=== PATIENT | female | born 1930 | race Caucasian/White ===

== ENCOUNTER 2017-10-05 15:20 | Inpatient (IN) | payer MEDICARE, BC ==
[~2017-10-05] VITALS: Ht 170.2 cm; Wt 77.2 kg
[~2017-10-05 15:20] MED LIST: AMLO2.5T PO; ASPI81 CHEW; LISI10TA PO; METO100T PO
[2017-10-05 15:26] VITALS: BP 260/121; PULSE 76; RESP 20; TEMP 98.5; O2SAT 94
--- NOTE | 2017-10-05 16:28 | RADRPT ---
EXAM DATE/TIME: 10/05/2017 16:12 [facility] COMPARISON: No previous studies available for comparison. INDICATIONS : Patient unable to speak and express herself last night. MEDICAL HISTORY : None. SURGICAL HISTORY : None. ENCOUNTER: Initial ACUITY: 1 day PAIN SCORE: 0/10 LOCATION: upper chest FINDINGS: PA and lateral views of the chest demonstrate the lungs to be symmetrically aerated without evidence of mass, infiltrate or effusion. A calcified granuloma seen within the left perihilar region. Aorta i s tortuous and calcified. The cardiomediastinal contours are unremarkable. Osseous structures are i ntact. The scoliotic and degenerative spine. CONCLUSION: No acute disease. Umer Aviles Jr., MD on October 05, 2017 at 16:24 Board Certified Radiologist. This report was verified electronically.
--- NOTE | 2017-10-05 16:35 | RADRPT ---
EXAM DATE/TIME: 10/05/2017 16:20 [facility] COMPARISON: CT BRAIN W/O CONTRAST, September 22, 2012, 20:25. INDICATIONS : Blurred vision. Difficulty speaking. Cephalgia. Confusion. RADIATION DOSE: 43.41 CTDIvol (mGy) MEDICAL HISTORY : Hypertension. SURGICAL HISTORY : None. ENCOUNTER: Initial ACUITY: 2 days PAIN SCALE: 0/10 LOCATION: cranial TECHNIQUE: Multiple contiguous axial images were obtained of the head. Using automated exposure control and adj ustment of the mA and/or kV according to patient size, radiation dose was kept as low as reasonably a chievable to obtain optimal diagnostic quality images. DICOM format image data is available electro nically for review and comparison. FINDINGS: CEREBRUM: The ventricles are normal for age. No evidence of midline shift, mass lesion, hemorrhage or acute in farction. No extra-axial fluid collections are seen. POSTERIOR FOSSA: The cerebellum and brainstem are intact. The 4th ventricle is midline. The cerebellopontine angle i s unremarkable. EXTRACRANIAL: The visualized portion of the orbits is intact. SKULL: The calvaria is intact. No evidence of skull fracture. CONCLUSION: Negative for an acute process. Justin Hastings MD FACR on October 05, 2017 at 16:33 Board Certified Radiologist. This report was verified electronically.
[2017-10-05 16:46] LABS: AUTOMATED NEUTROPHIL # 4.2 TH/MM3 (1.8-7.7); BASOPHIL % 0.2 % (0.0-2.0); EOSINOPHIL # 0.3 TH/MM3 (0-0.4); EOSINOPHIL % 4.2 % (0.0-4.0); HEMATOCRIT 40.5 % (35.0-46.0); HEMO FLAGS DIFF FINAL; LYMPH % 27.3 % (9.0-44.0); LYMPHOCYTE # 1.9 TH/MM3 (1.0-4.8); MEAN CELL VOLUME 85.9 FL (80.0-100.0); MEAN CORPUSCULAR HGB CONC 33.8 % (32.0-36.0); NEUT % 58.3 % (16.0-70.0); PLATELET COUNT 150 TH/MM3 (150-450); RED BLOOD COUNT 4.72 MIL/MM3 (4.00-5.30); RED CELL DISTRIBUTION WIDTH 14.2 % (11.6-17.2); WHITE BLOOD COUNT 7.1 TH/MM3 (4.0-11.0)
[2017-10-05 17:15] LABS: ALT (GPT) 32 U/L (10-53); ANION GAP 9 MEQ/L (5-15); AST (GOT) 23 U/L (15-37); BICARBONATE 29.3 MEQ/L (21.0-32.0); BLOOD UREA NITROGEN 20 MG/DL (7-18); CHLORIDE 92 MEQ/L (98-107); GLOMERULAR FILTRATION RATE 45 ML/MIN (>89); POTASSIUM 3.3 MEQ/L (3.5-5.1); SODIUM (NA) 130 MEQ/L (136-145)
[2017-10-05 17:18] LABS: ALKALINE PHOSPHATASE 55 U/L (45-117); TOTAL BILIRUBIN ADULT 0.4 MG/DL (0.2-1.0)
[2017-10-05 17:48] VITALS: BP 235/121; PULSE 62; RESP 19; TEMP 97.6; O2SAT 97
[2017-10-05] MEDS ORDERED: areds PO (17:53)
[2017-10-05] MEDS ORDERED: PROPARACAINE HCL 0.5% OPHT SOLN 15 ML BTL EACH EYE ONE (18:00)
[2017-10-05] MEDS ORDERED: FLUORESCEIN SOD 1 MG STRIP EACH EYE ONE (18:00)
[2017-10-05 18:20] LABS: APTT (PATIENT) 28.3 SEC (24.3-30.1); PROTHROMBIN TIME - PATIENT 10.7 SEC (9.8-11.6)
[2017-10-05 19:01] VITALS: BP 217/105; PULSE 62; RESP 20; O2SAT 96
[2017-10-05] MEDS ORDERED: hydrALAZINE HCL 20 MG/ML VIAL IV PUSH ONE (19:15)
--- NOTE | 2017-10-05 19:15 | PD ---
HPI Chief Complaint: Neuro Symptoms/ Deficits Time Seen by Provider: 17:36 Travel History International Travel<30 days: No Contact w/Intl Traveler<30days: No Traveled to known affect area: No History of Present Illness HPI Patient is an 86-year-old female who comes in because yesterday she had blurred vision and difficulty speaking. She said last night she was on the phone and was having difficulty finding words. She also reports that her vision went out. She says that she did not come in because she thought it would improve. She called her doctor this morning and complains finally heard back from him, he suggested she come to the emergency department. She says her vision is a little blurry, but her other symptoms have resolved. She denies weakness or difficulty walking. She says she has had a little bit of a posterior headache. She denies nausea or vomiting. She reports compliance with her blood pressure medications. PFSH Past Medical History Hx Anticoagulant Therapy: No Arthritis: Yes Cancer: No Cardiovascular Problems: Yes (HTN ) Chemotherapy: No Cerebrovascular Accident: Yes Diabetes: No Diminished Hearing: No Endocrine: No Gastrointestinal Disorders: Yes (ACID REFLUX) Genitourinary: No Hepatitis: No Hiatal Hernia: No Hypertension: Yes Immune Disorder: No Medical other: Yes (HX DIVERTICULITIS) Musculoskeletal: Yes (POST RIGHT HIP REPLACE - ) Neurologic: No Psychiatric: No Reproductive: No Respiratory: No Thyroid Disease: No Tetanus Vaccination: Unknown Influenza Vaccination: No ?: Not Menopausal: Yes Past Surgical History Abdominal Surgery: Yes (COLOSTOMY 2012) AICD: No Cardiac Surgery: No Ear Surgery: No Eye Surgery: Yes (CATARACT SURGERY BILATERAL ) Gynecologic Surgery: No Hysterectomy: No Joint Replacement: Yes (RIGHT TOT HIP) Oral Surgery: No Pacemaker: No Thoracic Surgery: No Other Surgery: Yes (VAGINAL FISTULA) Social History Alcohol Use: No Tobacco Use: No Substance Use: No Allergies-Medications (Allergen,Severity, Reaction): Coded Allergies: metronidazole (Verified Adverse Reaction, Intermediate, FELT BAD WEAK STOMACH FELT BAD ALL OVER, 10/05/17) Reported Meds & Prescriptions Reported Meds & Active Scripts Active Metoprolol Tartrate 100 Mg Tab 100 Mg PO DAILY Lisinopril-Hctz 10-12.5 Mg Tab 1 Tab PO DAILY Amlodipine (Amlodipine Besylate) 2.5 Mg Tab 2.5 Mg PO DAILY Reported [areds] 1 Tab PO DAILY Review of Systems Except as stated in HPI: all other systems reviewed are Neg General / Constitutional: No: Fever, Chills Eyes: Positive: Blurred Vision HENT: Positive: Headaches Cardiovascular: No: Chest Pain or Discomfort Respiratory: No: Shortness of Breath Gastrointestinal: No: Nausea, Vomiting Genitourinary: No: Dysuria Musculoskeletal: No: Myalgias, Weakness Skin: No Rash, No Change in Pigmentation Neurologic: No: Weakness Physical Exam Narrative GENERAL: Awake and alert, in no acute distress. SKIN: Focused skin assessment warm/dry. HEAD: Atraumatic. Normocephalic. EYES: Pupils equal and round. No scleral icterus. EOMI. ENT: Mucous membranes pink and moist. NECK: Trachea midline. No JVD. CARDIOVASCULAR: Regular rate and rhythm. No murmur appreciated. RESPIRATORY: No accessory muscle use. Clear to auscultation. Breath sounds equal bilaterally. GASTROINTESTINAL: Abdomen soft, non-tender, nondistended. MUSCULOSKELETAL: No obvious deformities. No clubbing. No cyanosis. No edema. NEUROLOGICAL: Awake and alert. No obvious cranial nerve deficits. Motor grossly within normal limits. Normal speech. PSYCHIATRIC: Appropriate mood and affect; insight and judgment normal. Data Data Last Documented VS Vital Signs Date Time Temp Pulse Resp B/P (MAP) Pulse Ox O2 Delivery O2 Flow Rate FiO2 10/05/17 19:01 62 20 217/105 (142) 96 Room Air 10/05/17 17:48 97.6 Orders Orders Electrocardiogram (10/05/17 15:49) Prothrombin Time / Inr (Pt) (10/05/17 15:49) Act Partial Throm Time (Ptt) (10/05/17 15:49) Complete Blood Count With Diff (10/05/17 15:49) Comprehensive Metabolic Panel (10/05/17 15:49) Ct Brain W/O Iv Contrast(Rout) (10/05/17 15:49) Ecg Monitoring (10/05/17 15:49) Iv Access Insert/Monitor (10/05/17 15:49) Oximetry (10/05/17 15:49) Sodium Chloride 0.9% Flush (Ns Flush) (10/05/17 16:00) Chest, Pa & Lat (10/05/17 15:49) Act Partial Throm Time (Ptt) (10/05/17 17:49) Prothrombin Time / Inr (Pt) (10/05/17 17:49) Troponin I (10/05/17 17:50) Proparacaine 0.5% Opth Soln (Alcaine 0.5 (10/05/17 18:00) Fluorescein Strip (Nnguu-V-Uiikzi A.T.) (10/05/17 18:00) Hydralazine Inj (Apresoline Inj) (10/05/17 19:15) Aspirin (Aspirin) (10/05/17 19:30) Mri Brain W&W/O Contrast (10/05/17 ) Mra Carotids W Contrast (10/05/17 ) Labs Laboratory Tests Test 10/05/17 16:07 10/05/17 17:55 White Blood Count 7.1 TH/MM3 Red Blood Count 4.72 MIL/MM3 Hemoglobin 13.7 GM/DL Hematocrit 40.5 % Mean Corpuscular Volume 85.9 FL Mean Corpuscular Hemoglobin 29.0 PG Mean Corpuscular Hemoglobin Concent 33.8 % Red Cell Distribution Width 14.2 % Platelet Count 150 TH/MM3 Mean Platelet Volume 9.4 FL Neutrophils (%) (Auto) 58.3 % Lymphocytes (%) (Auto) 27.3 % Monocytes (%) (Auto) 10.0 % Eosinophils (%) (Auto) 4.2 % Basophils (%) (Auto) 0.2 % Neutrophils # (Auto) 4.2 TH/MM3 Lymphocytes # (Auto) 1.9 TH/MM3 Monocytes # (Auto) 0.7 TH/MM3 Eosinophils # (Auto) 0.3 TH/MM3 Basophils # (Auto) 0.0 TH/MM3 CBC Comment DIFF FINAL Differential Comment Prothrombin Time SEC 10.7 SEC Prothromb Time International Ratio RATIO 1.0 RATIO Activated Partial Thromboplast Time SEC 28.3 SEC Blood Urea Nitrogen 20 MG/DL Creatinine 1.15 MG/DL Random Glucose 111 MG/DL Total Protein 7.8 GM/DL Albumin 4.0 GM/DL Calcium Level 9.1 MG/DL Alkaline Phosphatase 55 U/L Aspartate Amino Transf (AST/SGOT) 23 U/L Alanine Aminotransferase (ALT/SGPT) 32 U/L Total Bilirubin 0.4 MG/DL Sodium Level 130 MEQ/L Potassium Level 3.3 MEQ/L Chloride Level 92 MEQ/L Carbon Dioxide Level 29.3 MEQ/L Anion Gap 9 MEQ/L Estimat Glomerular Filtration Rate 45 ML/MIN Troponin I LESS THAN 0.02 NG/ML MDM Medical Decision Making Medical Screen Exam Complete: Yes Emergency Medical Condition: Yes Medical Record Reviewed: Yes Differential Diagnosis TIA versus stroke versus hypertensive urgency versus hypertensive emergency Narrative Course Patient is an 86-year-old female who comes in after an episode of blurred vision and difficulty speaking. Her symptoms are resolved now, neurologic exam is within normal limits. IV established, labs sent. Labs sent from triage of an elevated INR. However patient is not on any blood thinners. Repeat blood work shows PT PTT and INR all within normal limits. CT head shows no acute abnormalities. Patient's blood pressure is elevated. Given a dose of hydralazine. Dean pen used to measure pressure shows pressure in right eye is 8. Elliott lamp exam shows no evidence of abrasion. Spoke with neurology who suggests that admission for TIA workup. She will be admitted for further management. Given aspirin. Diagnosis Primary Impression: TIA (transient ischemic attack) Qualified Codes: G45.9 - Transient cerebral ischemic attack, unspecified Admitting Information Admitting Physician Requests: Admit Rosaura Cox MD Oct 05, 2017 19:15
[2017-10-05] MEDS ORDERED: ASPIRIN 325 MG TAB PO ONE (19:30)
[2017-10-05 19:46] VITALS: BP 220/98; PULSE 74; RESP 19; O2SAT 98
[2017-10-05] MEDS ORDERED: ENALAPRILAT 1.25 MG/ML VIAL IV PUSH PRN (20:00)
[2017-10-05] MEDS ORDERED: DEXTROSE 50% IN WATER 50 ML VIAL(D50) IV PUSH PRN (20:00)
[2017-10-05] MEDS ORDERED: GLUCAGON 1 MG/ML VIAL OTHER PRN (20:00)
[2017-10-05] MEDS ORDERED: SODIUM CHLORIDE 0.9% FLUSH 5 ML FLUSH IV FLUSH PRN (20:00)
[2017-10-05 20:30] VITALS: BP 207/97; PULSE 85; RESP 19; O2SAT 98
[2017-10-05] MEDS: INSULIN ASPART SUPPLEMENTAL SCALE SQ SCH (21:00)
[2017-10-05 21:55] VITALS: BP 184/91; PULSE 72; RESP 18; TEMP 98.7; O2SAT 97
[2017-10-05] MEDS: ENOXAPARIN SODIUM 40 MG/0.4 ML SYRINGE SQ SCH (22:36)
[2017-10-05] MEDS: SODIUM CHLORIDE 0.9% FLUSH 5 ML FLUSH IV FLUSH SCH (22:36)
--- NOTE | 2017-10-05 23:06 | HHI.HP ---
[facility] Service Family Medicine Primary Care Physician Alexis Olson MD Admission Diagnosis TIA Diagnoses: International Travel<30 Days: No Contact w/Intl Traveler<30days: No Known Affected Area: No History of Present Illness Mrs. Mora is a pleasant 86-year-old female, with a past medical history significant for hypertension, TIA, bowel obstruction, ventral hernia, glaucoma, and RLE DVT, presenting after experiencing difficulty with pronunciation of words, and blurry vision. History of present illness: She reports that last night on 10/04/2017 at around 9 PM, she was on the phone with her grand son. She reports that she was having difficulty with her finding her words and enunciating her words as well. At the same time, she had high lateral blurry vision. She told her grandson that she needed to get off the phone, and then went straight to bed. When she woke up, she was feeling slightly off, but almost back to her baseline. She denies any numbness or tingling on one side of her body, confusion, lightheadedness, with persistent blurry vision. She called her diffuser operator in the afternoon, and given her symptoms the night prior, it was recommended that she come into the emergency department. She currently has a headache at the base of her skull. Review of Systems Constitutional: DENIES: Fatigue, Fever Endocrine: DENIES: Polyuria Ears, nose, mouth, throat: DENIES: Vertigo Respiratory: DENIES: Apneas, Cough, Snoring, Sputum production, Shortness of breath Cardiovascular: DENIES: Chest pain, Palpitations, Syncope Gastrointestinal: DENIES: Abdominal pain, Black stools, Bloody stools, Constipation, Diarrhea Musculoskeletal: DENIES: Joint pain, Back pain Integumentary: DENIES: Rash Neurologic: COMPLAINS OF: Headache, DENIES: Abnormal gait, Localized weakness, Paresthesias, Seizures, Speech Problems, Tremor, Poor Balance Past Family Social History Past Medical History Additional history Past Medical History: HTN Rheumatic fever as a child Glaucoma (bilateral w/ surgery) Seborrheic dermatitis RLE DVT (01/31) Abdominal hernia, Past Surgical History: Basal cell cancer (2008) Squamous cancer (2010) Right hip replacement (10/02) Cecal repair, sigmoid repair, colostomy (10/18/13) Colostomy reversal (03/03) 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 Montelongo) for her abdominal hernia Allergies: Flagyl (stomach ache and feels bad all over) Social History: Occupation: retired Living situation: lives in [facility] with granddaughter Tobacco: former smoker, quit at age 57, 1/2 ppd for 20 years Alcohol: none Drugs: none Preventative: 81 mg Aspirin: recommended Hypertension: every visit Lipids: Orderd 03/05/16 Immunizations: Influenza: Defers Pneumococcal: recommended, defers Td/Tdap: Defers Varicella: as a child Zoster: recommended, defers Advanced directives: Patient says she has filled out her living will and was informed she should bring this to the office to be scanned in. She also states her 6 children are aware of her needs in the event they should need to be contact. Allergies: Coded Allergies: metronidazole (Verified Adverse Reaction, Intermediate, FELT BAD WEAK STOMACH FELT BAD ALL OVER, 10/05/17) Physical Exam Vital Signs Vital Signs Date Time Temp Pulse Resp B/P (MAP) Pulse Ox O2 Delivery O2 Flow Rate FiO2 10/05/17 21:55 98.7 72 18 184/91 (122) 97 10/05/17 20:55 10/05/17 20:30 85 19 207/97 (133) 98 Room Air 10/05/17 19:46 74 19 220/98 (138) 98 Room Air 10/05/17 19:01 62 20 217/105 (142) 96 Room Air 10/05/17 17:48 97.6 62 19 235/121 (159) 97 Room Air 10/05/17 17:43 19 Room Air 10/05/17 15:26 98.5 76 20 260/121 (167) 94 Room Air Physical Exam GENERAL: This is a well-nourished, well-developed patient, in no apparent distress. SKIN: No rashes, ecchymoses or lesions. Cool and dry. HEAD: Atraumatic. Normocephalic. No temporal or scalp tenderness. EYES: Pupils equal round and reactive. Extraocular motions intact. No scleral icterus. No injection or drainage. ENT: Nose without bleeding, purulent drainage or septal hematoma. Throat without erythema, tonsillar hypertrophy or exudate. Uvula midline. Airway patent. NECK: Trachea midline. No JVD or lymphadenopathy. Supple, nontender, no meningeal signs. CARDIOVASCULAR: Regular rate and rhythm, faint systolic ejection murmur. RESPIRATORY: Clear to auscultation. Breath sounds equal bilaterally. No wheezes , rales, or rhonchi. GASTROINTESTINAL: Abdomen soft, non-tender, nondistended. No hepato-splenomegaly , or palpable masses. No guarding. MUSCULOSKELETAL: Extremities without clubbing, cyanosis, or edema. No joint tenderness, effusion, or edema noted. No calf tenderness. Negative Homans sign bilaterally. NEUROLOGICAL: Awake and alert. Cranial nerves II through XII intact. Motor and sensory grossly within normal limits. Five out of 5 muscle strength in all muscle groups. Normal speech. Normal neurologic exam. Laboratory Laboratory Tests Test 10/05/17 16:07 10/05/17 17:55 White Blood Count 7.1 Red Blood Count 4.72 Hemoglobin 13.7 Hematocrit 40.5 Mean Corpuscular Volume 85.9 Mean Corpuscular Hemoglobin 29.0 Mean Corpuscular Hemoglobin Concent 33.8 Red Cell Distribution Width 14.2 Platelet Count 150 Mean Platelet Volume 9.4 Neutrophils (%) (Auto) 58.3 Lymphocytes (%) (Auto) 27.3 Monocytes (%) (Auto) 10.0 Eosinophils (%) (Auto) 4.2 Basophils (%) (Auto) 0.2 Neutrophils # (Auto) 4.2 Lymphocytes # (Auto) 1.9 Monocytes # (Auto) 0.7 Eosinophils # (Auto) 0.3 Basophils # (Auto) 0.0 CBC Comment DIFF FINAL Differential Comment Prothrombin Time 10.7 Prothromb Time International Ratio 1.0 Activated Partial Thromboplast Time 28.3 Blood Urea Nitrogen 20 Creatinine 1.15 Random Glucose 111 Total Protein 7.8 Albumin 4.0 Calcium Level 9.1 Alkaline Phosphatase 55 Aspartate Amino Transf (AST/SGOT) 23 Alanine Aminotransferase (ALT/SGPT) 32 Total Bilirubin 0.4 Sodium Level 130 Potassium Level 3.3 Chloride Level 92 Carbon Dioxide Level 29.3 Anion Gap 9 Estimat Glomerular Filtration Rate 45 Troponin I LESS THAN 0.02 Result Diagram: 10/05/17 1607 10/05/17 1607 Imaging Last [address] 10/05/17 3182 Signed Impressions: Service Date/Time: Thursday, October 05, 2017 16:20 - CONCLUSION: Negative for an acute process. Justin Hastings MD FACR Chest X-Ray 10/05/17 1549 Signed Impressions: Service Date/Time: Thursday, October 05, 2017 16:12 - CONCLUSION: No acute disease. Umer Aviles Jr., MD Septic Shock Reassessment Heart: Regular rate and rhythm Lungs: Clear Skin: Warm Peripheral Pulses: Bounding Right Radial Bounding Left Radial Capillary Refill: <2 seconds Caprini VTE Risk Assessment Caprini VTE Risk Assessment: Mod/High Risk (score >= 2) Caprini Risk Assessment Model Point Value = 1 Point Value = 2 Point Value = 3 Point Value = 5 Age 41-60 Minor surgery BMI > 25 kg/m2 Swollen legs Varicose veins or History of unexplained or recurrent spontaneous Oral contraceptives or hormone replacement Sepsis (< 1 month) Serious lung disease, including pneumonia (< 1 month) Abnormal pulmonary function Acute myocardial infarction Congestive heart failure (< 1 month) History of inflammatory bowel disease Medical patient at bed rest Age 61-74 Arthroscopic surgery Major open surgery (> 45 min) Laparoscopic surgery (> 45 min) Malignancy Confined to bed (> 72 hours) Immobilizing plaster cast Central venous access Age >= 75 History of VTE Family history of VTE Factor V Leiden Prothrombin [id number] Lupus anticoagulant Anticardiolipin antibodies Elevated serum homocysteine Heparin-induced thrombocytopenia Other congenital or acquired thrombophilia Stroke (< 1 month) Elective arthroplasty Hip, pelvis, or leg fracture Acute spinal cord injury (< 1 month) Prophylaxis Regimen Total Risk Factor Score Risk Level Prophylaxis Regimen 0-1 Low Early ambulation 2 Moderate Order ONE of the following: *Sequential Compression Device (SCD) *Heparin 5000 units SQ BID 3-4 Higher Order ONE of the following medications: *Heparin 5000 units SQ TID *Enoxaparin/Lovenox 40 mg SQ daily (WT < 150 kg, CrCl > 30 mL/min) *Enoxaparin/Lovenox 30 mg SQ daily (WT < 150 kg, CrCl > 10-29 mL/min) *Enoxaparin/Lovenox 30 mg SQ BID (WT < 150 kg, CrCl > 30 mL/min) AND/OR *Sequential Compression Device (SCD) 5 or more Highest Order ONE of the following medications: *Heparin 5000 units SQ TID (Preferred with Epidurals) *Enoxaparin/Lovenox 40 mg SQ daily (WT < 150 kg, CrCl > 30 mL/min) *Enoxaparin/Lovenox 30 mg SQ daily (WT < 150 kg, CrCl > 10-29 mL/min) *Enoxaparin/Lovenox 30 mg SQ BID (WT < 150 kg, CrCl > 30 mL/min) AND *Sequential Compression Device (SCD) Assessment and Plan Assessment and Plan 86-year-old female, with past medical history significant for hypertension, TIA , and DVT, presenting with blurry vision and word finding difficulties. She will be admitted for a stroke workup. Problem List: (1) TIA (transient ischemic attack) ICD Codes: G45.9 - Transient cerebral ischemic attack, unspecified Status: Acute Plan: Normal neurologic exam on admission. CT on admission, also showed no infarcts or bleeding. Neurology was consulted, plan for MRI in the morning. Swallow eval with diet. Given aspirin 325 mg 1. Allow for permissive hypertension less than to 220 mmHg systolic for the first 24 hours. Neuro exams every 4 hours. Head of bed flat. PT/OT/speech therapy evaluations. (2) Heart murmur Status: Chronic Plan: Old finding, likely secondary to aortic stenosis or mitral regurgitation. The patient is currently denying any chest pain or palpitations. We'll trend troponins. EKG on admission showed normal sinus rhythm without ST segment depression or elevation. (3) Essential hypertension ICD Codes: I10 - Essential (primary) hypertension Status: Chronic Plan: Continue blood pressure medications in the morning. Allow for permissive hypertension as above. (4) Nutrition, metabolism, and development symptoms ICD Codes: R63.8 - Other symptoms and signs concerning food and fluid intake Plan: Diet: Can have regular diet after passing bedside swallow eval. Fluids: BMP showed BUN/CR of >20, they be slightly dehydrated. Dry mucous membranes on exam. Regular diet at this time. DVT prophylaxis: SCDs bilaterally GI prophylaxis: Not indicated at this time. We'll discuss with the day team in the morning. Problem Qualifiers (1) TIA (transient ischemic attack): Qualified Codes: G45.9 - Transient cerebral ischemic attack, unspecified Eliu Bowers MD, R3 Oct 05, 2017 23:06
[2017-10-06] VITALS (8 sets, daily range): BP systolic 116–204; BP diastolic 57–105; PULSE 67–119; RESP 16–20; TEMP 97.8–98.3; O2SAT 94–97
[2017-10-06 01:14] LABS: CREATINE KINASE 145 U/L (26-192)
[2017-10-06] MEDS: INSULIN ASPART SUPPLEMENTAL SCALE SQ SCH ×4 (08:00→20:18)
[2017-10-06 08:18] LABS: AUTOMATED NEUTROPHIL # 6.7 TH/MM3 (1.8-7.7); BASOPHIL % 0.5 % (0.0-2.0); EOSINOPHIL % 0.1 % (0.0-4.0); HEMATOCRIT 41.7 % (35.0-46.0); HEMO FLAGS DIFF FINAL; LYMPH % 14.8 % (9.0-44.0); LYMPHOCYTE # 1.2 TH/MM3 (1.0-4.8); MEAN CELL VOLUME 85.5 FL (80.0-100.0); MEAN CORPUSCULAR HEMOGLOBIN 29.8 PG (27.0-34.0); MEAN CORPUSCULAR HGB CONC 34.9 % (32.0-36.0); MONO % 4.8 % (0.0-8.0); NEUT % 79.8 % (16.0-70.0); PLATELET COUNT 225 TH/MM3 (150-450); RED BLOOD COUNT 4.88 MIL/MM3 (4.00-5.30); RED CELL DISTRIBUTION WIDTH 14.3 % (11.6-17.2); WHITE BLOOD COUNT 8.4 TH/MM3 (4.0-11.0)
[2017-10-06 08:41] LABS: BICARBONATE 28.6 MEQ/L (21.0-32.0); POTASSIUM 3.4 MEQ/L (3.5-5.1)
[2017-10-06 08:46] LABS: HDL CHOLESTEROL 73.6 MG/DL (40.0-60.0)
[2017-10-06] MEDS ORDERED: NON-FORMULARY DRUG (Lisinopril-Hctz 1 TAB) PO SCH (09:00)
[2017-10-06] MEDS ORDERED: HYDROCHLOROTHIAZIDE 25 MG TAB PO SCH (09:00)
[2017-10-06] MEDS ORDERED: amLODIPine BESYLATE 5 MG TAB PO SCH (09:00)
[2017-10-06] MEDS ORDERED: METOPROLOL TARTRATE 100 MG TAB PO SCH (09:00)
[2017-10-06] MEDS ORDERED: LISINOPRIL 10 MG TAB PO SCH (09:00)
[2017-10-06] MEDS: SODIUM CHLORIDE 0.9% FLUSH 5 ML FLUSH IV FLUSH SCH ×2 (09:44→21:00)
[2017-10-06] MEDS: ASPIRIN 325 MG TAB PO SCH (09:45)
--- NOTE | 2017-10-06 10:17 | RADRPT ---
EXAM DATE/TIME: 10/06/2017 07:45 [facility] COMPARISON: No previous studies available for comparison. INDICATIONS : Transient ischemic attack. MEDICAL HISTORY : Hypertension. CVA. Renal disease. Arthritis. SURGICAL HISTORY : Cataract removal. Right total hip replacement. Colostomy. Vaginal fistula repair. ENCOUNTER: Initial ACUITY: 1 day PAIN SCORE: 0/10 LOCATION: Bilateral neck PEAK SYSTOLIC VELOCITIES (cm/sec): ICA/CCA RATIO: Right: 1.1 Left: 1.0 ICA: Right: 68 Left: 67 CCA: Right: 61 Left: 67 ECA: Right: 121 Left: 89 VERTEBRAL: Right: 51 antegrade Left: 38 antegrade Elevated flow velocities and ICA/CCA ratios have been found to correlate with increased degrees of vessel stenosis, calculated as percentage of diameter relative to a normal segment of distal ICA/CCA FINDINGS: RIGHT CAROTID: Calcified plaquing in the carotid bulb extending up into the bifurcation. The waveforms are within n ormal limits. LEFT CAROTID: Calcified plaquing in the mid common carotid artery as well as the carotid bulb extending up into the bifurcation. The waveforms are within normal limits. VERTEBRAL ARTERIES: Antegrade flow is seen in both vertebral arteries. MISCELLANEOUS: None. CONCLUSION: 1. Calcified plaquing in both carotid bulbs extending up into the bifurcations. There is also a calci fied plaque in the left mid common carotid artery. 2. However, no sonographic or Doppler findings of a hemodynamically significant stenosis. Antegrade f low in both vertebral arteries. Dwight Will MD on October 06, 2017 at 10:13 Board Certified Radiologist. This report was verified electronically.
[2017-10-06] MEDS ORDERED: GADODIAMIDE PF 287 MG/ML 20 ML VIAL (for RAD MRI) IVCONTRAST ONE (10:47)
[2017-10-06] MEDS ORDERED: OCUVTAB4 PO (11:18)
--- NOTE | 2017-10-06 11:24 | HHI.FPPN ---
Subjective Remarks Mrs. Sullivan was afebrile and hypertensive to SBP ~220/DBP 100 overnight. Patient reports mild headache but otherwise states that she is doing well this morning. Patient does not report any slurred speech, numbness/tingling/weakness in extremities, or visual changes. Patient does not report chest pain, shortness of breath, or urinary or bowel concerns. Nursing staff at bedside supplemented history; patient reportedly passed recent swallowing evaluation and requests diet. (Chung Flor MD, R3) Remarks Patient later evaluated in the company of her daughter who traveled from [place] to visit patient; she has done well today without concerns. (Chung Flor MD, R3) Objective Vitals Vital Signs Date Time Temp Pulse Resp B/P (MAP) Pulse Ox O2 Delivery O2 Flow Rate FiO2 10/06/17 10:50 98.1 82 16 204/96 (132) 94 10/06/17 08:02 67 10/06/17 05:53 97.9 71 18 152/96 (114) 95 10/06/17 01:09 98.3 69 16 190/86 (120) 95 10/05/17 21:55 98.7 72 18 184/91 (122) 97 10/05/17 20:55 10/05/17 20:30 85 19 207/97 (133) 98 Room Air 10/05/17 19:46 74 19 220/98 (138) 98 Room Air 10/05/17 19:01 62 20 217/105 (142) 96 Room Air 10/05/17 17:48 97.6 62 19 235/121 (159) 97 Room Air 10/05/17 17:43 19 Room Air 10/05/17 15:26 98.5 76 20 260/121 (167) 94 Room Air (Chung Flor MD, R3) Result Diagram: 10/06/17 0738 10/06/17 0738 Imaging Last Impressions Neck Magnetic Resonance Angiography 10/06/17 0000 Signed Impressions: Service Date/Time: September 10:20 - CONCLUSION: 1. Focal mild narrowing at the origin of the right external carotid artery. 2. Otherwise , no evidence of any focal high grade or hemodynamically significant stenosis involving the right or left internal carotid arteries. Robbin Martinez MD Head Magnetic Resonance Angiography 10/06/17 0000 Signed Impressions: Service Date/Time: September 10:20 - CONCLUSION: Normal examination for a patient of this age. Robbin Martinez MD Carotid Artery Ultrasound 10/06/17 0000 Signed Impressions: Service Date/Time: September 07:45 - CONCLUSION: 1. Calcified plaquing in both carotid bulbs extending up into the bifurcations. There is also a calcified plaque in the left mid common carotid artery. 2. However, no sonographic or Doppler findings of a hemodynamically significant stenosis. Antegrade flow in both vertebral arteries. Dwight Will MD Brain MRI 10/06/17 0000 Signed Impressions: Service Date/Time: September 10:20 - CONCLUSION: 1. No acute intracranial pathology. 2. 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 3. Chronic white matter changes bilaterally characteristic of patients age. Robbin Martinez MD Head CT 10/05/17 1549 Signed Impressions: Service Date/Time: Thursday, October 05, 2017 16:20 - CONCLUSION: Negative for an acute process. Justin Hastings MD FACR Chest X-Ray 10/05/17 1549 Signed Impressions: Service Date/Time: Thursday, October 05, 2017 16:12 - CONCLUSION: No acute disease. Umer Aviles Jr., MD Objective Remarks GENERAL: no apparent distress. SKIN: No rashes, ecchymoses or lesions. HEAD: Atraumatic. Normocephalic. EYES: Pupils equal round and reactive. Extraocular motions intact. NEUROLOGICAL: Awake and alert. Cranial nerves intact. Normal speech. Cerebellar testing normal. Motor and sensory function grossly normal; gait not assessed. ENT: Throat without erythema NECK: No JVD or lymphadenopathy. Supple, nontender, no meningeal signs. CARDIOVASCULAR: Regular rate and rhythm; normal peripheral perfusion. No LE edema. RESPIRATORY: Clear to auscultation. Breath sounds equal bilaterally. GASTROINTESTINAL: Abdomen soft, non-tender, nondistended. No hepato-splenomegaly , or palpable masses. No guarding. MUSCULOSKELETAL: Extremities without edema. Grossly normal strength and ROM (Chung Flor MD, R3) A/P Assessment and Plan 86-year-old female, with past medical history significant for hypertension, TIA , and DVT, presenting with blurry vision and word finding difficulties; admitted for a stroke workup: (Chung Flor MD, R3) Attending Attestation EMR reviewed Patients hospital course discussed in detail with Dr Flor Patient seen and examined Agree with contents of this note See Orders (Bulmaro Bernstein MD) Problem List: (1) TIA (transient ischemic attack) ICD Codes: G45.9 - Transient cerebral ischemic attack, unspecified Status: Acute Plan: Impression: History of visual changes and word finding difficulties concerning for possible transient CVA. Normal neurologic exam on admission. CT on admission, also showed no infarcts or bleeding. 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 -MRA brain wnl -MRA neck- focal mild narrowing at origin of R external carotid but otherwise normal -Carotid US- calcified plaque present but no suggestion of high grade stenosis -2 D echocardiogram- moderately reduced EF (40-45%); mild concentric LVH Lipid profile- Cholesterol 174, TG 120, HDL 73.6 -Continue ASA -PT/OT/speech therapy -HOB flat -permissive hypertension less than to 220 mmHg systolic for the first 24 hours; will restart home medications this afternoon -Will start moderate potency statin (although age >79 years; patient doing well and reports prior statin at home -DVT PPX (2) Heart murmur Status: Chronic Plan: Impression: 1/6 systolic murmur at LSB previously documented in Cardiology documentation. No chest pain or palpitations Echo with EF 40-45%, mild concentric LVH, mild aortic regurgitation (3) Essential hypertension ICD Codes: I10 - Essential (primary) hypertension Status: Chronic Plan: Impression: SBP ~220, DBP ~100 on admission. -Continue permissive HTN with subsequent reduction of SBP by ~25% after 24 hrs ( early afternoon) -Restart home Amlodipine 2.5mg -Restart home Lisinopril 10mg daily -Restart home HCTZ 12mg mg daily (4) Nutrition, metabolism, and development symptoms ICD Codes: R63.8 - Other symptoms and signs concerning food and fluid intake Plan: Diet: Regular diet Fluids: BMP showed BUN/CR of >20, they be slightly dehydrated. Dry mucous membranes on exam. Regular diet at this time. DVT prophylaxis: SCDs bilaterally; Enoxaparin 40mg daily GI prophylaxis: Not indicated at this time. (Chung Flor MD, R3) Problem Qualifiers (1) TIA (transient ischemic attack): Qualified Codes: G45.9 - Transient cerebral ischemic attack, unspecified Chung Flor MD, R3 Oct 06, 2017 11:24 Bulmaro Bernstein MD Oct 07, 2017 14:07
[2017-10-06 11:36] LABS: HEMOGLOBIN A1b 1.9 %; HEMOGLOBIN Ao 84.8 %; HEMOGLOBIN LA1C 2.1 %; HEMOGLOBIN P3 3.9 %
[2017-10-06] MEDS ORDERED: PILL SPLITTER OTHER PRN (12:00)
[2017-10-06] MEDS ORDERED: POTASSIUM CHLORIDE 10 MEQ CONTROLLED RELEASE TAB PO ONE (12:00)
--- NOTE | 2017-10-06 12:17 | RADRPT ---
EXAM DATE/TIME: 10/06/2017 10:20 [facility] COMPARISON: CT BRAIN W/O CONTRAST, October 05, 2017, 16:20. INDICATIONS : Blurred vision. Difficulty speaking. Confusion. MEDICAL HISTORY : Hypertension. SURGICAL HISTORY : Rt hip, cataract ENCOUNTER: Subsequent ACUITY: 2 day PAIN SCORE: 0/10 LOCATION: cranial TECHNIQUE: Multiplanar, multisequence MRI of the brain was performed without contrast. FINDINGS: CEREBRUM: The ventricles are normal for age. No evidence of midline shift, mass lesion, hemorrhage or acute in farction. No extraaxial fluid collections are seen. The pituitary gland and suprasellar cistern are normal in configuration. WHITE MATTER: There is some high signal spots in the white matter tracks bilaterally characteristic of ischemic dem yelinization. POSTERIOR FOSSA: The cerebellum and brainstem are intact. There appear to be 2 very tiny old infarcts in the right cer ebellar hemisphere. The 4th ventricle is midline. The cerebellopontine angle is unremarkable. The ce rebellar tonsils are normal in position. DIFFUSION IMAGING: No focal areas of restricted diffusion are seen. No evidence of acute infarction. EXTRACRANIAL: The visualized portions of the orbits and paranasal sinuses are unremarkable. CONCLUSION: 1. No acute intracranial pathology. 2. 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 3. Chronic white matter changes bilaterally characteristic of patients age. Robbin Martinez MD on October 06, 2017 at 12:12 Board Certified Radiologist. This report was verified electronically.
--- NOTE | 2017-10-06 12:18 | RADRPT ---
EXAM DATE/TIME: 10/06/2017 10:20 [facility] COMPARISON: No previous studies available for comparison. INDICATIONS : Blurred vision. Difficulty speaking. Confusion. MEDICAL HISTORY : Hypertension. SURGICAL HISTORY : RT hip, cataract ENCOUNTER: Subsequent ACUITY: 2 day PAIN SCORE: 0/10 LOCATION: cranial Please note a normal MRA of the brain does not entirely exclude the possibility of a small aneurysm, nor the possibility of distal intracranial vessel disease. TECHNIQUE: 3D time of flight MRA was performed. Source images, multiplanar STS MIP, and 3D volume MIP reconstru ctions were reviewed. FINDINGS: There is excellent visualization of the major intracranial arteries out to the second-order branch ve ssels. There is no evidence for aneurysm, vessel truncation or stenosis, and no evidence for vascula r malformation. CONCLUSION: Normal examination for a patient of this age. Robbin Martinez MD on October 06, 2017 at 12:15 Board Certified Radiologist. This report was verified electronically.
--- NOTE | 2017-10-06 12:26 | RADRPT ---
EXAM DATE/TIME: 10/06/2017 10:20 [facility] COMPARISON: No previous studies available for comparison. INDICATIONS : Blurred vision. Difficulty speaking. Confusion. CONTRAST: 20 cc Omniscan (gadodiamide) IV MEDICAL HISTORY : Hypertension. SURGICAL HISTORY : RT hip, cataract ENCOUNTER: Subsequent ACUITY: 2 day PAIN SCORE: 0/10 LOCATION: cranial Percent stenosis is calculated using the diameter of the stenotic region over the diameter of the nor mal distal internal carotid artery. TECHNIQUE: Bolus infused MRA of the extracranial circulation was performed using a neurovascular coil. Post pro cessing was performed including rotating subvolume maximum intensity projections of each carotid hector ry, rotating full volume maximum intensity projections of both carotid arteries, sagittal and coronal sliding thin slab reformations of each carotid artery, and left oblique sliding thin slab reformatio n through the aortic arch to include the origin of the arch branch vessels. FINDINGS: AORTIC ARCH: There is a three vessel origin of the great vessels from the aorta. No evidence of ostial narrowing. The vessels are tortuous along the proximal extent. RIGHT CAROTID: The common carotid artery is intact. The carotid bulb has a normal configuration without ulceration or narrowing. The internal carotid artery lumen is smooth without stenosis. The external carotid ar abigail is intact. There is some focal mild narrowing at the origin of the external carotid artery. LEFT CAROTID: The common carotid artery is intact. The carotid bulb has a normal configuration without ulceration or narrowing. The internal carotid artery lumen is smooth without stenosis. The external carotid ar abigail is intact. VERTEBRALS: The vertebral arteries have a symmetric diameter. No stenotic lesions are seen. CONCLUSION: 1. Focal mild narrowing at the origin of the right external carotid artery. 2. Otherwise, no evidence of any focal high grade or hemodynamically significant stenosis involving t he right or left internal carotid arteries. Robbin Martinez MD on October 06, 2017 at 12:20 Board Certified Radiologist. This report was verified electronically.
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
[2017-10-06] MEDS: amLODIPine BESYLATE 5 MG TAB PO SCH (13:05)
[2017-10-06] MEDS: HYDROCHLOROTHIAZIDE 12.5 MG CAP PO SCH (13:06)
[2017-10-06] MEDS: LISINOPRIL 10 MG TAB PO SCH (13:08)
[2017-10-06] MEDS ORDERED: ACETAMINOPHEN 325 MG TAB PO PRN (14:00)
--- NOTE | 2017-10-06 16:31 | MB ---
cc: GERBERWILLY DATE OF CONSULTATION: 10/06/2017 HISTORY OF PRESENT ILLNESS Ms. Sullivan is a 86-year-old white female with history of hypertension, aortic root dilatation, dyslipidemia. She presented to the emergency room with blurred vision and speech difficulty. She has not had any chest pain and shortness of breath and dizziness. She has had mild palpitations. She also has had mild lower extremity edema. PAST MEDICAL HISTORY 1. Hypertension. 2. Rheumatic fever. 3. Glaucoma. 4. Right lower extremity DVT. 5. Abdominal hernia. 6. Surgery for glaucoma. 7. Surgery for basal cell cancer, squamous cell. 8. Right hip replacement. 9. Cecal repair. 10. Sigmoid repair. 11. Colostomy. 12. Colostomy reversal. 13. Cataract surgery. MEDICATIONS Medications include: 1. Atenolol. 2. Lisinopril. 3. Pravastatin. 4. PreserVision. ALLERGIES FLAGYL. SOCIAL HISTORY The patient quit smoking at the age of 67. She does not drink alcohol. She lives with her granddaughter. FAMILY HISTORY Family history is positive for heart disease in her father. REVIEW OF SYSTEMS Otherwise negative. PHYSICAL EXAMINATION VITAL SIGNS: Blood pressure 155/91, pulse 86 and regular. HEENT: Negative. 2+ carotid upstrokes. No bruits. LUNGS: Clear. HEART: Regular with 1/6 systolic murmur, no gallop. ABDOMEN: Soft, no bruits. EXTREMITIES: With trace edema. 2+ distal pulses. NEURO: Grossly nonfocal. EKG EKG was reviewed and showed normal sinus rhythm, left axis, left ventricular hypertrophy with secondary ST-T changes and anteroseptal Q-waves. LABORATORY DATA Hemoglobin 14.6, potassium 3.4, creatinine 0.96. Troponin negative x3. LDL 76. ECHOCARDIOGRAM 05/2017 showed ejection fraction of 60% and also wall motion abnormalities. DIAGNOSIS 1. Possible TIA. 2. Hypertension. 3. History of DVT. 4. Dyslipidemia. 5. Aortic root dilatation. 6. Mitral insufficiency. 7. Mild mitral regurgitation. DISPOSITION Ms. Sullivan will undergo neurologic workup for possible TIA. She had her brain MRI and will also have MRA. Her last echocardiogram showed preserved left ventricular systolic function and mild aortic insufficiency, mild mitral regurgitation and mild tricuspid regurgitation. She will be treated with aspirin as recommended by neurology. We will continue aggressive management of her cardiac risk factors. I will see her back for followup in our office after discharge. MD HEATHER Milan/ANUSHA /2:03 PM /4:05 PM EUGEN[facility]
--- NOTE | 2017-10-06 17:09 | ECHRPT ---
Indication: CVA/TIA CONCLUSIONS The left ventricular systolic function is moderately reduced with an estimated ejection fraction in the range of 40-45%. Mild concentric left ventricular hypertrophy. Normal left ventricular size. Mild aortic valve regurgitation. Trivial pulmonary valve regurgitation. BP: 152 / 71 HR: 71 Rhythm: Sinus MEASUREMENTS (Male / Female) Normal Values Technical Quality:Fair 2D ECHO LV Diastolic Diameter PLAX 3.8 cm 4.2 - 5.9 / 3.9 - 5.3 cm LV Systolic Diameter PLAX 3.2 cm IVS Diastolic Thickness 1.5 cm 0.6 - 1.0 / 0.6 - 0.9 cm LVPW Diastolic Thickness 1.4 cm 0.6 - 1.0 / 0.6 - 0.9 cm LV Relative Wall Thickness 0.8 LVOT Diameter 2.0 cm Ascending Aorta Diameter 4.2 cm M-MODE Aortic Root Diameter MM 2.8 cm LA Systolic Diameter MM 2.6 cm LA Ao Ratio MM 0.9 AV Cusp Separation MM 1.7 cm DOPPLER AV Peak Velocity 142.0 cm/s AV Peak Gradient 8.1 mmHg AI Peak Velocity 493.5 cm/s AI Peak Gradient 97.4 mmHg AI Pressure Half Time 618.0 ms LVOT Peak Velocity 83.9 cm/s LVOT Peak Gradient 2.8 mmHg AV Area Cont Eq pk 1.9 cm Mitral E Point Velocity 58.2 cm/s Mitral A Point Velocity 92.3 cm/s Mitral E to A Ratio 0.6 LV E' Lateral Velocity 4.5 cm/s Mitral E to LV E' Lateral Ratio 13.0 PV Peak Velocity 100.0 cm/s PV Peak Gradient 4.0 mmHg FINDINGS LEFT VENTRICLE The left ventricular systolic function is moderately reduced with an estimated ejection fraction in the range of 40-45%. Mild concentric left ventricular hypertrophy. Normal left ventricular size. RIGHT VENTRICLE Normal right ventricular size and systolic function. LEFT ATRIUM The left atrial size is normal. RIGHT ATRIUM The right atrial size is normal. ATRIAL SEPTUM Normal atrial septal thickness without atrial level shunting by limited color doppler interrogation. AORTA The aortic root and proximal ascending aorta are normal in size on limited imaging. Ascending aorta measured at 4.2cm MITRAL VALVE Structurally normal mitral valve. No mitral valve stenosis or regurgitation. AORTIC VALVE Mild aortic valve regurgitation. TRICUSPID VALVE Structurally normal tricuspid valve. No tricuspid valve stenosis or regurgitation. PULMONARY VALVE Trivial pulmonary valve regurgitation. VESSELS The inferior vena cava is normal in size. PERICARDIUM No pericardial effusion. Jerome Torres MD (Electronically Signed) Final Date:06 October 2017 17:09
--- NOTE | 2017-10-06 17:58 | EKG ---
Date Performed: 10/05/2017 Time Performed: 16:56:42 PTAGE: 86 years EKG: Sinus rhythm MARKED LEFT AXIS DEVIATION PATTERN CONSISTENT WITH PULMONARY DISEASE LEFT VENTRICULAR HYPERTROPHY AN D ST-T CHANGE POSSIBLE SEPTAL MYOCARDIAL INFARCTION ABNORMAL ECG PREVIOUS TRACING 02/19/13 Since the prior tracing, the patient has developed criteria for left v entricular hypertrophy with secondary ST-T wave changes. The criteria for the possible septal infarct on the present tracing are also new, and an interval septal infarct cannot be excluded. Clinical cor relation will be important. DOCTOR: Katerina Jha Interpretating Date/Time 10/06/2017 17:57:41
[2017-10-06] MEDS: ENOXAPARIN SODIUM 40 MG/0.4 ML SYRINGE SQ SCH (21:48)
[2017-10-06] MEDS: SODIUM CHLORIDE 0.9% FLUSH 10 ML FLUSH IVF PRN (21:49)
[2017-10-06] MEDS ORDERED: SODIUM CHLORID 0.9% 500 ML INJ 500 ML IV ONE (22:45)
[2017-10-07] VITALS (11 sets, daily range): BP systolic 123–192; BP diastolic 63–101; PULSE 65–102; RESP 16–20; TEMP 97.8–98.3; O2SAT 92–96
[2017-10-07 07:00] LABS: AUTOMATED NEUTROPHIL # 5.5 TH/MM3 (1.8-7.7); BASOPHIL # 0.1 TH/MM3 (0-0.2); BASOPHIL % 0.7 % (0.0-2.0); EOSINOPHIL # 0.2 TH/MM3 (0-0.4); EOSINOPHIL % 1.8 % (0.0-4.0); HEMATOCRIT 39.8 % (35.0-46.0); HEMO FLAGS DIFF FINAL; LYMPH % 20.6 % (9.0-44.0); LYMPHOCYTE # 1.7 TH/MM3 (1.0-4.8); MEAN CELL VOLUME 85.8 FL (80.0-100.0); MEAN CORPUSCULAR HEMOGLOBIN 29.9 PG (27.0-34.0); MEAN CORPUSCULAR HGB CONC 34.8 % (32.0-36.0); MONO % 10.5 % (0.0-8.0); NEUT % 66.4 % (16.0-70.0); PLATELET COUNT 190 TH/MM3 (150-450); RED BLOOD COUNT 4.64 MIL/MM3 (4.00-5.30); RED CELL DISTRIBUTION WIDTH 13.9 % (11.6-17.2); WHITE BLOOD COUNT 8.2 TH/MM3 (4.0-11.0)
[2017-10-07 07:21] LABS: BICARBONATE 29.8 MEQ/L (21.0-32.0); POTASSIUM 3.6 MEQ/L (3.5-5.1)
[2017-10-07] MEDS: INSULIN ASPART SUPPLEMENTAL SCALE SQ SCH ×4 (08:00→20:57)
[2017-10-07] MEDS: amLODIPine BESYLATE 5 MG TAB PO SCH (08:22)
[2017-10-07] MEDS: LISINOPRIL 10 MG TAB PO SCH (08:30)
[2017-10-07] MEDS: ASPIRIN 325 MG TAB PO SCH (08:30)
[2017-10-07] MEDS: HYDROCHLOROTHIAZIDE 12.5 MG CAP PO SCH (08:30)
[2017-10-07] MEDS: PRAVASTATIN SOD 40 MG TAB PO SCH (08:30)
[2017-10-07] MEDS: SODIUM CHLORIDE 0.9% FLUSH 5 ML FLUSH IV FLUSH SCH ×2 (08:30→20:58)
[2017-10-07] MEDS ORDERED: PRAV40TA2 PO (10:15)
[2017-10-07] MEDS ORDERED: ATEN100T PO (10:16)
[2017-10-07] MEDS: ATENOLOL 100 MG TAB PO SCH (11:45)
[2017-10-07] MEDS ORDERED: amLODIPine BESYLATE 5 MG TAB PO SCH (12:00)
[2017-10-07] MEDS ORDERED: HYDROCHLOROTHIAZIDE 12.5 MG CAP PO SCH (14:00)
[2017-10-07] MEDS ORDERED: LISINOPRIL 10 MG TAB PO SCH (14:00)
--- NOTE | 2017-10-07 14:31 | HHI.FPPN ---
Subjective Remarks Mrs. Sullivan was afebrile with HTN overnight (SBP elevated). Per discussion with night team, patient/her daughter, and nursing staff overnight, patient had episode of ? near syncope in the bathroom yesterday evening. Patient reportedly was bending to get a toothbrush which had fallen on the ground, but was unable to complete this task per her daughter; patient's daughter found patient leaning against the wall with questionable consciousness. Orthostatics were performed at this time and found to be positive. Patient reports that she feels well at this time; she does not report chest pain , shortness of breath, nausea/vomiting, or dysuria. Patient does not report numbness/tingling. Patient reports epigastric/below rib pain when leaning forward suspected to be due to pinching from telemetry leads. Patient's medications were also reviewed due to assistance from nursing staff/ pharmacy; patient was taking Atenolol 100mg daily previously prior to change to Lopressor due to inadequate supply in July. Objective Vitals Vital Signs Date Time Temp Pulse Resp B/P (MAP) Pulse Ox O2 Delivery O2 Flow Rate FiO2 10/07/17 11:44 98.1 99 18 154/98 (116) 94 10/07/17 08:02 76 10/07/17 08:01 123/79 (94) 10/07/17 08:00 98.3 102 16 183/101 (128) 96 10/07/17 08:00 192/95 (127) 10/07/17 04:51 97.9 84 18 152/100 (117) 92 10/07/17 02:41 102 10/07/17 00:03 98.2 76 18 156/95 (115) 95 10/06/17 22:14 203/101 (135) 176/105 (128) 118/78 (91) 10/06/17 21:22 98.0 119 20 116/57 (76) 97 10/06/17 17:42 97.8 87 18 167/82 (110) 95 I/O 10/06/17 10/06/17 10/06/17 10/07/17 10/07/17 10/07/17 07:00 15:00 23:00 07:00 15:00 23:00 Intake Total 500 ml Balance 500 ml Intake IV Total 500 ml # Voids 4 # Bowel Movements 0 Result Diagram: 10/07/17 0612 10/07/17 0612 Imaging Last Impressions Neck Magnetic Resonance Angiography 10/06/17 0000 Signed Impressions: Service Date/Time: September 10:20 - CONCLUSION: 1. Focal mild narrowing at the origin of the right external carotid artery. 2. Otherwise , no evidence of any focal high grade or hemodynamically significant stenosis involving the right or left internal carotid arteries. Robbin Martinez MD Head Magnetic Resonance Angiography 10/06/17 0000 Signed Impressions: Service Date/Time: September 10:20 - CONCLUSION: Normal examination for a patient of this age. Robbin Martinez MD Carotid Artery Ultrasound 10/06/17 0000 Signed Impressions: Service Date/Time: September 07:45 - CONCLUSION: 1. Calcified plaquing in both carotid bulbs extending up into the bifurcations. There is also a calcified plaque in the left mid common carotid artery. 2. However, no sonographic or Doppler findings of a hemodynamically significant stenosis. Antegrade flow in both vertebral arteries. Dwight Will MD Brain MRI 10/06/17 0000 Signed Impressions: Service Date/Time: September 10:20 - CONCLUSION: 1. No acute intracranial pathology. 2. 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 3. Chronic white matter changes bilaterally characteristic of patients age. Robbin Martinez MD Head CT 10/05/17 1549 Signed Impressions: Service Date/Time: Thursday, October 05, 2017 16:20 - CONCLUSION: Negative for an acute process. Justin Hastings MD FACR Chest X-Ray 10/05/17 1549 Signed Impressions: Service Date/Time: Thursday, October 05, 2017 16:12 - CONCLUSION: No acute disease. Umer Aviles Jr., MD Objective Remarks GENERAL: no apparent distress. SKIN: No rashes, ecchymoses or lesions. HEAD: Atraumatic. Normocephalic. EYES: Pupils equal round and reactive. Extraocular motions intact. NEUROLOGICAL: Awake and alert. Cranial nerves intact. Normal speech. Motor and sensory function grossly normal; gait not assessed. NECK: No JVD or lymphadenopathy. Supple, nontender, no meningeal signs. CARDIOVASCULAR: Mild tachycardia to ~100 bpm; regular rhythm; normal peripheral perfusion. No LE edema. RESPIRATORY: Clear to auscultation. Breath sounds equal bilaterally. GASTROINTESTINAL: Abdomen soft, non-tender, nondistended. No hepato-splenomegaly , or palpable masses. No guarding. MUSCULOSKELETAL: Extremities without edema. Grossly normal strength and ROM A/P Assessment and Plan 86-year-old female, with past medical history significant for hypertension, TIA , and DVT, presenting with blurry vision and word finding difficulties; admitted for a stroke workup: Problem List: (1) TIA (transient ischemic attack) ICD Codes: G45.9 - Transient cerebral ischemic attack, unspecified Status: Acute Plan: Impression: History of visual changes and word finding difficulties concerning for possible transient CVA. Normal neurologic exam on admission. CT on admission, also showed no infarcts or bleeding. 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 -MRA brain wnl -MRA neck- focal mild narrowing at origin of R external carotid but otherwise normal -Carotid US- calcified plaque present but no suggestion of high grade stenosis -2 D echocardiogram- moderately reduced EF (40-45%); mild concentric LVH Lipid profile- Cholesterol 174, TG 120, HDL 73.6 -Continue ASA -PT/OT/speech therapy -HOB flat -Continue HTN control -Lisinopril 10mg daily -HCTZ 12.5mg daily -Amlodipine 2.5mg daily -Will restart home Atenolol 100mg daily -Will restart home Pravastatin -DVT PPX (2) Tachyarrhythmia ICD Codes: R00.0 - Tachycardia, unspecified Status: Acute Plan: Impression: Patient's telemetry reviewed; patient seemingly has episodes of HR elevation to ~150 bpm; T waves appear present and seems to be sinus arrhythmia. Labs also reviewed this morning with Troponin 0.06 Patient's HR elevation likely had role in patient's symptoms last night as well as mild troponin elevation w/o exertional chest pain -Will restart home Atenolol 100mg daily -Continue telemetry (3) Heart murmur Status: Chronic Plan: Impression: / systolic murmur at LSB previously documented in Cardiology documentation. No chest pain or palpitations Echo with EF 40-45%, mild concentric LVH, mild aortic regurgitation (4) Essential hypertension ICD Codes: I10 - Essential (primary) hypertension Status: Chronic Plan: Impression: SBP ~220, DBP ~100 on admission. -Continue permissive HTN with subsequent reduction of SBP by ~25% after 24 hrs ( early afternoon) -Restart home Amlodipine 2.5mg -Restart home Lisinopril 10mg daily -Restart home HCTZ 12mg mg daily (5) Nutrition, metabolism, and development symptoms ICD Codes: R63.8 - Other symptoms and signs concerning food and fluid intake Plan: Diet: Regular diet Fluids: Will defer IVF at this time DVT prophylaxis: SCDs bilaterally; Enoxaparin 40mg daily GI prophylaxis: Not indicated at this time. Problem Qualifiers (1) TIA (transient ischemic attack): Qualified Codes: G45.9 - Transient cerebral ischemic attack, unspecified Chung Flor MD, R3 Oct 07, 2017 14:31
[2017-10-07] MEDS: hydrALAZINE HCL 10 MG TAB PO PRN (15:18)
[2017-10-07 16:49] LABS: HEMOGLOBIN A1b 1.9 %; HEMOGLOBIN Ao 84.8 %; HEMOGLOBIN LA1C 2.1 %
--- NOTE | 2017-10-07 17:21 | PD.CARD.PN ---
Subjective Subjective Remarks No CP or SOB, possible presyncope in the bathroom earlier, now back on atenolol due to tachyarrhythmia Objective Medications Current Medications Medications (Trade) Dose Ordered Sig/Sherice Route Start Time Stop Time Status Last Admin (NS Flush) 2 ml UNSCH PRN IVF 10/05/17 16:00 10/06/17 21:49 (NS Flush) 2 ml BID IV FLUSH 10/05/17 21:00 10/07/17 08:30 (NS Flush) 2 ml UNSCH PRN IV FLUSH 10/05/17 20:00 (Vasotec Inj) 2.5 mg Q4H PRN IV PUSH 10/05/17 20:00 (Aspirin) 325 mg DAILY PO 10/06/17 09:00 10/07/17 08:30 (NovoLOG SUPPLEMENTAL SCALE) 1 ACHS SQ 10/05/17 21:00 (D50w (Vial) Inj) 50 ml UNSCH PRN IV PUSH 10/05/17 20:00 (Glucagon Inj) 1 mg UNSCH PRN OTHER 10/05/17 20:00 (Lovenox Inj) 40 mg Q24H SQ 10/05/17 20:00 10/06/17 21:48 (Norvasc) 2.5 mg DAILY PO 10/06/17 12:00 10/07/17 08:22 (Microzide) 12.5 mg DAILY PO 10/06/17 14:00 10/07/17 08:30 (Prinivil) 10 mg DAILY PO 10/06/17 14:00 10/07/17 08:30 (Pill Splitter) 1 ea UNSCH PRN OTHER 10/06/17 12:00 (Tylenol) 650 mg Q6H PRN PO 10/06/17 14:00 10/06/17 16:37 (Apresoline) 10 mg Q8H PRN PO 10/06/17 18:45 10/07/17 15:18 (Pravachol) 40 mg DAILY PO 10/07/17 09:00 10/07/17 08:30 (Tenormin) 100 mg DAILY PO 10/07/17 11:00 10/07/17 11:45 Vital Signs / I&O Vital Signs Date Time Temp Pulse Resp B/P (MAP) Pulse Ox O2 Delivery O2 Flow Rate FiO2 10/07/17 16:38 69 132/63 (86) 10/07/17 11:44 98.1 99 18 154/98 (116) 94 10/07/17 08:02 76 10/07/17 08:01 123/79 (94) 10/07/17 08:00 98.3 102 16 183/101 (128) 96 10/07/17 08:00 192/95 (127) 10/07/17 04:51 97.9 84 18 152/100 (117) 92 10/07/17 02:41 102 10/07/17 00:03 98.2 76 18 156/95 (115) 95 10/06/17 22:14 203/101 (135) 176/105 (128) 118/78 (91) 10/06/17 21:22 98.0 119 20 116/57 (76) 97 10/06/17 17:42 97.8 87 18 167/82 (110) 95 I/O 10/06/17 10/06/17 10/06/17 10/07/17 10/07/17 10/07/17 07:00 15:00 23:00 07:00 15:00 23:00 Intake Total 500 ml Balance 500 ml Intake IV Total 500 ml # Voids 4 # Bowel Movements 0 Physical Exam GENERAL: In NAD SKIN: Warm and dry. HEAD: Normocephalic. EYES: No scleral icterus. No injection or drainage. NECK: Supple, trachea midline. No JVD or lymphadenopathy. CARDIOVASCULAR: Regular rate and rhythm without murmurs, gallops, or rubs. RESPIRATORY: Breath sounds equal bilaterally. No accessory muscle use. GASTROINTESTINAL: Abdomen soft, non-tender, nondistended. MUSCULOSKELETAL: No cyanosis, or edema. Laboratory Laboratory Tests Test 10/07/17 06:12 White Blood Count 8.2 TH/MM3 Red Blood Count 4.64 MIL/MM3 Hemoglobin 13.8 GM/DL Hematocrit 39.8 % Mean Corpuscular Volume 85.8 FL Mean Corpuscular Hemoglobin 29.9 PG Mean Corpuscular Hemoglobin Concent 34.8 % Red Cell Distribution Width 13.9 % Platelet Count 190 TH/MM3 Mean Platelet Volume 9.2 FL Neutrophils (%) (Auto) 66.4 % Lymphocytes (%) (Auto) 20.6 % Monocytes (%) (Auto) 10.5 % Eosinophils (%) (Auto) 1.8 % Basophils (%) (Auto) 0.7 % Neutrophils # (Auto) 5.5 TH/MM3 Lymphocytes # (Auto) 1.7 TH/MM3 Monocytes # (Auto) 0.9 TH/MM3 Eosinophils # (Auto) 0.2 TH/MM3 Basophils # (Auto) 0.1 TH/MM3 CBC Comment DIFF FINAL Differential Comment Blood Urea Nitrogen 19 MG/DL Creatinine 1.09 MG/DL Random Glucose 97 MG/DL Calcium Level 8.7 MG/DL Sodium Level 129 MEQ/L Potassium Level 3.6 MEQ/L Chloride Level 91 MEQ/L Carbon Dioxide Level 29.8 MEQ/L Anion Gap 8 MEQ/L Estimat Glomerular Filtration Rate 48 ML/MIN Total Creatine Kinase 323 U/L Creatine Kinase MB 6.0 NG/ML Creatine Kinase MB % 1.9 % Troponin I 0.06 NG/ML Assessment and Plan Problem List: (1) TIA (transient ischemic attack) ICD Codes: G45.9 - Transient cerebral ischemic attack, unspecified Status: Acute (2) HTN (hypertension) ICD Codes: I10 - Essential (primary) hypertension (3) Pre-syncope ICD Codes: R55 - Syncope and collapse (4) Tachyarrhythmia ICD Codes: R00.0 - Tachycardia, unspecified Status: Acute Assessment and Plan Continue monitoring on telemetry. Permissive hypertension. Atenolol restarted. Neurology evaluation. Continue aspirin. Continue risk factor modification. Will schedule outpt f/u in our office. D/w pt and family. Problem Qualifiers (1) TIA (transient ischemic attack): Qualified Codes: G45.9 - Transient cerebral ischemic attack, unspecified Alexis Olson MD Oct 07, 2017 17:21
[2017-10-07] MEDS: ENOXAPARIN SODIUM 40 MG/0.4 ML SYRINGE SQ SCH (20:57)
[2017-10-07] MEDS: SODIUM CHLORIDE 0.9% FLUSH 10 ML FLUSH IVF PRN (20:57)
[2017-10-08] MEDS: hydrALAZINE HCL 10 MG TAB PO PRN (00:43)
[2017-10-08 00:46] VITALS: BP 186/88; PULSE 63; RESP 18; TEMP 97.9; O2SAT 93
[2017-10-08 04:39] VITALS: BP 174/82; PULSE 67; RESP 18; TEMP 98; O2SAT 97
[2017-10-08 06:06] VITALS: PULSE 68
[2017-10-08 07:23] LABS: AUTOMATED NEUTROPHIL # 5.2 TH/MM3 (1.8-7.7); BASOPHIL % 0.3 % (0.0-2.0); EOSINOPHIL # 0.3 TH/MM3 (0-0.4); EOSINOPHIL % 3.2 % (0.0-4.0); HEMATOCRIT 42.2 % (35.0-46.0); HEMO FLAGS DIFF FINAL; LYMPH % 28.8 % (9.0-44.0); LYMPHOCYTE # 2.5 TH/MM3 (1.0-4.8); MEAN CELL VOLUME 85.6 FL (80.0-100.0); MEAN CORPUSCULAR HEMOGLOBIN 29.8 PG (27.0-34.0); MEAN CORPUSCULAR HGB CONC 34.8 % (32.0-36.0); NEUT % 58.7 % (16.0-70.0); PLATELET COUNT 190 TH/MM3 (150-450); RED BLOOD COUNT 4.93 MIL/MM3 (4.00-5.30); RED CELL DISTRIBUTION WIDTH 14.2 % (11.6-17.2); WHITE BLOOD COUNT 8.8 TH/MM3 (4.0-11.0)
[2017-10-08 07:59] LABS: BICARBONATE 28.7 MEQ/L (21.0-32.0)
[2017-10-08 08:00] VITALS: BP 183/94; PULSE 71; RESP 16; TEMP 98.4; O2SAT 95
[2017-10-08] MEDS: ASPIRIN 325 MG TAB PO SCH (09:46)
[2017-10-08] MEDS: HYDROCHLOROTHIAZIDE 12.5 MG CAP PO SCH (09:46)
[2017-10-08] MEDS: amLODIPine BESYLATE 5 MG TAB PO SCH (09:47)
[2017-10-08] MEDS: SODIUM CHLORIDE 0.9% FLUSH 10 ML FLUSH IVF PRN (09:48)
[2017-10-08] MEDS: PRAVASTATIN SOD 40 MG TAB PO SCH (09:48)
[2017-10-08] MEDS: LISINOPRIL 10 MG TAB PO SCH (09:48)
[2017-10-08] MEDS: ATENOLOL 100 MG TAB PO SCH (09:48)
[2017-10-08] MEDS: SODIUM CHLORIDE 0.9% FLUSH 5 ML FLUSH IV FLUSH SCH (09:49)
--- NOTE | 2017-10-08 10:00 | HHI.FF ---
Face to Face Verification Diagnosis: (1) Tachyarrhythmia (2) HTN (hypertension) (3) TIA (transient ischemic attack) Physical Therapy Order: Evaluate and Treat Occupational Therapy Order: Evaluate and Treat Home Health Nursing Order: Medical education Signs/symptoms of disease process Chief Service Observer Order: To Evaluate: Living conditions/environment I have seen patient Pam Sullivan on 10/08/17. My clinical findings support the need for the requested home health care services because: Deconditioned w/ increased weakness Med compliance is questionable High risk of falls I certify that my clinical findings support that this patient is homebound because: Unsteady gait/balance Chung Flor MD, R3 Oct 08, 2017 10:00
[2017-10-08] MEDS ORDERED: ASPI-516 CHEW (11:45)
[2017-10-08] MEDS ORDERED: ATEN25TA PO (11:45)
--- NOTE | 2017-10-08 12:06 | HHI.FPPN ---
Subjective Remarks Mrs. Sullivan was afebrile with intermittent HTN overnight (SBP 132- 186). Telemetry reviewed; patient with intermittent bradycardia to low of 47 bpm. Mrs. Sullivan was accompanied by her daughter this morning; she reports that she has been doing well overall. She has been walking with her daughter in the evenings without any symptoms. Patient reports some upper abdominal pain when leaning forward; this is not associated with breathing and is not present when waling. Patient does not report shortness of breath, dysuria, nausea/vomiting. Patient and her daughter request discharge home. Objective Vitals Vital Signs Date Time Temp Pulse Resp B/P (MAP) Pulse Ox O2 Delivery O2 Flow Rate FiO2 10/08/17 08:00 98.4 71 16 183/94 (123) 95 10/08/17 04:39 98.0 67 18 174/82 (112) 97 10/08/17 00:46 97.9 63 18 186/88 (120) 93 10/07/17 20:00 97.9 71 19 171/82 (111) 95 10/07/17 20:00 70 10/07/17 18:43 97.8 65 18 175/80 (111) 95 10/07/17 16:38 69 132/63 (86) 10/07/17 16:00 98.0 67 20 180/93 (122) 94 I/O 10/07/17 10/07/17 10/07/17 10/08/17 10/08/17 10/08/17 07:00 15:00 23:00 07:00 15:00 23:00 Intake Total 500 ml 140 ml Balance 500 ml 140 ml Intake Oral 140 ml IV Total 500 ml # Voids 1 Result Diagram: 10/08/1763010/08/1731 Objective Remarks GENERAL: no apparent distress. SKIN: No rashes, ecchymoses or lesions. HEAD: Atraumatic. Normocephalic. EYES: Pupils equal round and reactive. Extraocular motions intact. NEUROLOGICAL: Awake and alert. Cranial nerves intact. Normal speech. Motor and sensory function grossly normal; gait not assessed. NECK: No JVD or lymphadenopathy. Supple, nontender, no meningeal signs. CARDIOVASCULAR: Mild tachycardia to ~100 bpm; regular rhythm; normal peripheral perfusion. No LE edema. RESPIRATORY: Clear to auscultation. Breath sounds equal bilaterally. GASTROINTESTINAL: Abdomen soft, non-tender, nondistended. No hepato-splenomegaly , or palpable masses. No guarding. MUSCULOSKELETAL: Extremities without edema. Grossly normal strength and ROM A/P Assessment and Plan 86-year-old female, with past medical history significant for hypertension, TIA , and DVT, presenting with blurry vision and word finding difficulties; admitted for a stroke workup: Discharge Planning Planned discharge home today; will try for home health care per daughter's request Problem List: (1) TIA (transient ischemic attack) ICD Codes: G45.9 - Transient cerebral ischemic attack, unspecified Status: Acute Plan: Impression: History of visual changes and word finding difficulties concerning for possible transient CVA. Normal neurologic exam on admission. CT on admission, also showed no infarcts or bleeding. 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 -MRA brain wnl -MRA neck- focal mild narrowing at origin of R external carotid but otherwise normal -Carotid US- calcified plaque present but no suggestion of high grade stenosis -2 D echocardiogram- moderately reduced EF (40-45%); mild concentric LVH Lipid profile- Cholesterol 174, TG 120, HDL 73.6 -Continue ASA -PT/OT/speech therapy -PT- no home health recommended -OT- no OT recommended -ST- independent -Continue HTN control -Lisinopril 10mg daily -HCTZ 12.5mg daily -Amlodipine 2.5mg daily -Will change to Atenolol 25mg BID -Continue home Pravastatin -DVT PPX (2) Tachyarrhythmia ICD Codes: R00.0 - Tachycardia, unspecified Status: Acute Plan: 10/08: Telemetry overnight with intermittent bradycardia (HR 47 BPM) after atenolol 100 mg restarted -We'll change atenolol to 25 mg twice a day; patient and her daughter instructed the patient may take an additional 25 mg tablet with persistent tachycardia if needed -Patient/her mother agreed to follow-up in the next approximately 3-4 days to further titrate medications if needed -F/U with Cardiology and PCP in ~ 1 week Impression: Patient's telemetry reviewed; patient seemingly has episodes of HR elevation to ~150 bpm; T waves appear present and seems to be sinus arrhythmia. Troponin 0.06 during hospitalization attributed to tachyarrhythmia (3) Essential hypertension ICD Codes: I10 - Essential (primary) hypertension Status: Chronic Plan: 10/08: Persistent hypertension with max SBP 186 overnight; patient had low SBP in 130's -Discussed with patient/her daughter: We'll attempt to slowly titrate medications as to avoid symptoms of potential falls from rapid reduction -Continue home Amlodipine 2.5mg -Continue home Lisinopril 10mg daily -Continue home HCTZ 12mg mg daily -Will switch Atenolol to 25mg BID due to bradycardia Impression: SBP ~220, DBP ~100 on admission. History of essential hypertension. Permissive hypertension initially allowed with subsequent restarting of home BP medications. (4) Heart murmur Status: Chronic Plan: Impression: 11/26 systolic murmur at LSB previously documented in Cardiology documentation. No chest pain or palpitations Echo with EF 40-45%, mild concentric LVH, mild aortic regurgitation (5) Nutrition, metabolism, and development symptoms ICD Codes: R63.8 - Other symptoms and signs concerning food and fluid intake Plan: Diet: Regular diet Fluids: Will defer IVF at this time DVT prophylaxis: SCDs bilaterally; Enoxaparin 40mg daily GI prophylaxis: Not indicated at this time. Problem Qualifiers (1) TIA (transient ischemic attack): Qualified Codes: G45.9 - Transient cerebral ischemic attack, unspecified Chung Flor MD, R3 Oct 08, 2017 12:05
== END 2017-10-08 14:20 | disposition home health service (06) | DRG 69 ==
LOC: NEPC 15:20 → UNDOADMIN 19:34 → NEDA 19:34 → INTOOBSV 20:05 → NEDA 20:05 → OBSVTOIN 20:24 → N05B 20:50
PROVIDERS: ADMIT Family Medicine; ATTEND Family Medicine
DX: G45.9 Transient cerebral ischemic attack, unspecified (principal); E86.0 Dehydration; R00.1 Bradycardia, unspecified; I10 Essential (primary) hypertension; E78.5 Hyperlipidemia, unspecified; K21.9 Gastro-esophageal reflux disease without esophagitis; R79.1 Abnormal coagulation profile; I77.810 Thoracic aortic ectasia; I08.0 Rheumatic disorders of both mitral and aortic valves; R00.0 Tachycardia, unspecified; M19.90 Unspecified osteoarthritis, unspecified site; H40.9 Unspecified glaucoma; Z85.828 Personal history of other malignant neoplasm of skin; Z86.718 Personal history of other venous thrombosis and embolism; Z86.73 Personal history of transient ischemic attack (TIA), and cerebral infarction without residual deficits; Z87.891 Personal history of nicotine dependence; Z96.641 Presence of right artificial hip joint
CPT/HCPCS: 70450; 70544; 70548; 70551; 71020; 80048; 80053; 80061; 82550; 82552; 82948; 83036; 84484; 85025; 85610; 85730; 93005; 93306; 93880; 96374; A9579; J0360; J1650; J7040

== ENCOUNTER → 2017-11-01 | Outpatient (CLI) | payer MEDICARE, BC ==
[~2017-11-01] MED LIST changes: +ASPI-516 CHEW; -ASPI81 CHEW; +ATEN100T PO; +ATEN25TA PO; -METO100T PO; +OCUVTAB4 PO; +PRAV40TA2 PO
[2017-11-01 14:02] LABS: BICARBONATE 28.4 MEQ/L (21.0-32.0); POTASSIUM 3.6 MEQ/L (3.5-5.1)
== END ==
LOC: CLAB 13:05
PROVIDERS: ATTEND Internal Medicine Interventional Cardiology
DX: I10 Essential (primary) hypertension (principal)
CPT/HCPCS: 36415; 80048

== ENCOUNTER 2018-01-23 14:45 | Emergency (ER) | payer MEDICARE, BC ==
[~2018-01-23 14:45] MED LIST changes: -AMLO2.5T PO; +AMLO5TAB2 PO; -ATEN100T PO; +VIST25CA PO
[2018-01-23 14:51] VITALS: BP 164/77; PULSE 68; RESP 15; TEMP 97.2; O2SAT 100
--- NOTE | 2018-01-23 15:30 | RADRPT ---
EXAM DATE/TIME: 01/23/2018 15:23 [facility] COMPARISON: CT BRAIN W/O CONTRAST, October 05, 2017, 16:20. INDICATIONS : Dizziness, slurred speech which has resolved RADIATION DOSE: 37.53 CTDIvol (mGy) MEDICAL HISTORY : Hypertension. Renal insufficiency, chronic. Cerebrovascular disease. SURGICAL HISTORY : None. ENCOUNTER: Initial ACUITY: 1 day PAIN SCALE: 0/10 LOCATION: cranial TECHNIQUE: Multiple contiguous axial images were obtained of the head. Using automated exposure control and adj ustment of the mA and/or kV according to patient size, radiation dose was kept as low as reasonably a chievable to obtain optimal diagnostic quality images. DICOM format image data is available electro nically for review and comparison. FINDINGS: CEREBRUM: The ventricles are normal for age. No evidence of midline shift, mass lesion, hemorrhage or acute in farction. No extra-axial fluid collections are seen. POSTERIOR FOSSA: The cerebellum and brainstem are intact. The 4th ventricle is midline. The cerebellopontine angle i s unremarkable. EXTRACRANIAL: The visualized portion of the orbits is intact. SKULL: The calvaria is intact. No evidence of skull fracture. CONCLUSION: Negative for acute process. MRI could offer more information. Justin Hastings MD FACR on January 23, 2018 at 15:28 Board Certified Radiologist. This report was verified electronically.
[2018-01-23 16:20] LABS: AUTOMATED NEUTROPHIL # 5.1 TH/MM3 (1.8-7.7); BASOPHIL # 0.1 TH/MM3 (0-0.2); BASOPHIL % 1.2 % (0.0-2.0); EOSINOPHIL # 0.3 TH/MM3 (0-0.4); EOSINOPHIL % 4.1 % (0.0-4.0); HEMATOCRIT 39.6 % (35.0-46.0); HEMOGLOBIN 13.7 GM/DL (11.6-15.3); LYMPH % 24.4 % (9.0-44.0); LYMPHOCYTE # 2.1 TH/MM3 (1.0-4.8); MEAN CELL VOLUME 85.3 FL (80.0-100.0); MEAN CORPUSCULAR HEMOGLOBIN 29.4 PG (27.0-34.0); MEAN CORPUSCULAR HGB CONC 34.5 % (32.0-36.0); MEAN PLATELET VOLUME 8.6 FL (7.0-11.0); MONO % 9.9 % (0.0-8.0); MONOCYTE # 0.8 TH/MM3 (0-0.9); NEUT % 60.4 % (16.0-70.0); PLATELET COUNT 150 TH/MM3 (150-450); RED BLOOD COUNT 4.65 MIL/MM3 (4.00-5.30); RED CELL DISTRIBUTION WIDTH 13.8 % (11.6-17.2); WHITE BLOOD COUNT 8.4 TH/MM3 (4.0-11.0)
[2018-01-23 16:29] LABS: INTERNATIONAL NORMALIZED RATIO 1.1 RATIO; PROTHROMBIN TIME - PATIENT 10.9 SEC (9.8-11.6)
[2018-01-23 16:33] LABS: ALT (GPT) 28 U/L (10-53); AST (GOT) 19 U/L (15-37); BICARBONATE 30.4 MEQ/L (21.0-32.0); BLOOD UREA NITROGEN 23 MG/DL (7-18); CALCIUM 9.2 MG/DL (8.5-10.1); CHLORIDE 94 MEQ/L (98-107); CREATININE 1.37 MG/DL (0.50-1.00); GLOMERULAR FILTRATION RATE 37 ML/MIN (>89); GLUCOSE,RANDOM 137 MG/DL (74-106); SODIUM (NA) 132 MEQ/L (136-145)
[2018-01-23 16:36] LABS: ALKALINE PHOSPHATASE 53 U/L (45-117); TOTAL BILIRUBIN ADULT 0.5 MG/DL (0.2-1.0); TOTAL PROTEIN 7.6 GM/DL (6.4-8.2)
--- NOTE | 2018-01-24 12:12 | PD ---
HPI Chief Complaint: Dizziness Time Seen by Provider: 14:51 Travel History International Travel<30 days: No Contact w/Intl Traveler<30days: No Traveled to known affect area: No History of Present Illness HPI 87-year-old female is sent to emergency department by her primary care provider Dr. Flro for evaluation of possible TIA. Patient states about an hour ago she had acute onset dizziness with slurred speech. This did resolve on its own. Patient states this has happened before and she has had multiple TIAs. Denies any headache at this time. Denies any nausea, vomiting, focal deficits, or weakness. She has no other symptoms to report. PFSH Past Medical History Hx Anticoagulant Therapy: No Arthritis: Yes Cancer: No Cardiovascular Problems: Yes Chemotherapy: No Cerebrovascular Accident: Yes Diabetes: No Diminished Hearing: No Endocrine: No Gastrointestinal Disorders: Yes (ACID REFLUX) Genitourinary: No Hepatitis: No Hiatal Hernia: No Hypertension: Yes Immune Disorder: No Musculoskeletal: Yes (POST RIGHT HIP REPLACE - ) Neurologic: No Psychiatric: No Reproductive: No Respiratory: No Thyroid Disease: No Menopausal: Yes Past Surgical History Abdominal Surgery: Yes (COLOSTOMY 2011) AICD: No Cardiac Surgery: No Ear Surgery: No Eye Surgery: Yes (CATARACT SURGERY BILATERAL ) Gynecologic Surgery: No Hysterectomy: No Joint Replacement: Yes (RIGHT TOT HIP) Oral Surgery: No Pacemaker: No Thoracic Surgery: No Other Surgery: Yes (VAGINAL FISTULA) Social History Alcohol Use: No Tobacco Use: No Substance Use: No Allergies-Medications (Allergen,Severity, Reaction): Coded Allergies: metronidazole (Verified Adverse Reaction, Intermediate, FELT BAD WEAK STOMACH FELT BAD ALL OVER, 11/11/17) Reported Meds & Prescriptions Reported Meds & Active Scripts Active Vistaril (Hydroxyzine Pamoate) 25 Mg Cap 25 Mg PO Q6H PRN Amlodipine (Amlodipine Besylate) 5 Mg Tab 5 Mg PO DAILY Atenolol 25 Mg Tab 25 Mg PO BID Aspirin 81 Mg Chew 162 Mg CHEW DAILY Lisinopril-Hctz 10-12.5 Mg Tab 1 Tab PO DAILY Reported Pravastatin 40 Mg Tab 40 Mg PO DAILY Preservision Areds (Multiple Vitamins W/ Minerals) 1 Tab 1 Tab PO DAILY Review of Systems Except as stated in HPI: all other systems reviewed are Neg Physical Exam Narrative This is a well-nourished pleasant elderly female patient, in no acute distress. Patient is ambulatory with a non-ataxic gait. She her head is normocephalic and atraumatic. She is even respirations. Regular heart rate. Abdomen is not distended. She moves all extremities. She speaks clearly to me. Data Data Last Documented VS Vital Signs Date Time Temp Pulse Resp B/P (MAP) Pulse Ox O2 Delivery O2 Flow Rate FiO2 01/23/18 14:51 97.2 68 15 164/77 (106) 100 Orders Orders Electrocardiogram (01/23/18 14:53) Prothrombin Time / Inr (Pt) (01/23/18 14:53) Act Partial Throm Time (Ptt) (01/23/18 14:53) Complete Blood Count With Diff (01/23/18 14:53) Comprehensive Metabolic Panel (01/23/18 14:53) Urinalysis - C+S If Indicated (01/23/18 14:53) Ct Brain W/O Iv Contrast(Rout) (01/23/18 14:53) Labs Laboratory Tests Test 01/23/18 15:12 White Blood Count 8.4 TH/MM3 Red Blood Count 4.65 MIL/MM3 Hemoglobin 13.7 GM/DL Hematocrit 39.6 % Mean Corpuscular Volume 85.3 FL Mean Corpuscular Hemoglobin 29.4 PG Mean Corpuscular Hemoglobin Concent 34.5 % Red Cell Distribution Width 13.8 % Platelet Count 150 TH/MM3 Mean Platelet Volume 8.6 FL Neutrophils (%) (Auto) 60.4 % Lymphocytes (%) (Auto) 24.4 % Monocytes (%) (Auto) 9.9 % Eosinophils (%) (Auto) 4.1 % Basophils (%) (Auto) 1.2 % Neutrophils # (Auto) 5.1 TH/MM3 Lymphocytes # (Auto) 2.1 TH/MM3 Monocytes # (Auto) 0.8 TH/MM3 Eosinophils # (Auto) 0.3 TH/MM3 Basophils # (Auto) 0.1 TH/MM3 CBC Comment DIFF FINAL Differential Comment Prothrombin Time 10.9 SEC Prothromb Time International Ratio 1.1 RATIO Activated Partial Thromboplast Time 28.0 SEC Blood Urea Nitrogen 23 MG/DL Creatinine 1.37 MG/DL Random Glucose 137 MG/DL Total Protein 7.6 GM/DL Albumin 4.0 GM/DL Calcium Level 9.2 MG/DL Alkaline Phosphatase 53 U/L Aspartate Amino Transf (AST/SGOT) 19 U/L Alanine Aminotransferase (ALT/SGPT) 28 U/L Total Bilirubin 0.5 MG/DL Sodium Level 132 MEQ/L Potassium Level 3.2 MEQ/L Chloride Level 94 MEQ/L Carbon Dioxide Level 30.4 MEQ/L Anion Gap 8 MEQ/L Estimat Glomerular Filtration Rate 37 ML/MIN MDM Medical Decision Making Medical Screen Exam Complete: Yes Emergency Medical Condition: Yes Medical Record Reviewed: Yes Differential Diagnosis TIA versus CVA versus elective right abnormality versus normal exam Narrative Course 87-year-old female presents to emergency department for evaluation of acute onset dizziness with slurred speech that has since resolved. Workup is initiated in triage prior to bed placement, patient chooses to leave. AMA: The risks of leaving against medical advice without further evaluation treatment were discussed with the patient. These risks include cardiac dysfunction, cardiac dysrhythmia, possible heart attack, possible stroke or . The patient indicated understanding of these risks and appeared to have the capacity to make this decision. Diagnosis Primary Impression: Dizziness Additional Impression: Slurred speech Patient Instructions: General Instructions Departure Forms: Tests/Procedures Disposition: 07 AGAINST MEDICAL ADVICE Condition: Stable Lacey Boyce Jan 24, 2018 12:12
--- NOTE | 2018-01-24 18:57 | EKG ---
Date Performed: 01/23/2018 Time Performed: 15:13:17 PTAGE: 87 years EKG: Sinus rhythm LEFT ANTERIOR FASCICULAR BLOCK LEFT VENTRICULAR HYPERTROPHY AND ST-T CHANGE POSSIBLE SEPTAL MYOCARDI AL INFARCTION ABNORMAL ECG Since the prior tracing, there has been no significant change PREVIOUS TRACING : 10/05/2017 16.56 DOCTOR: Shin Amos Interpretating Date/Time 01/24/2018 18:55:38
== END 2018-01-23 20:56 | disposition left against medical advice (07) ==
LOC: NED 14:45
DX: R42 Dizziness and giddiness (principal); Z53.21 Procedure and treatment not carried out due to patient leaving prior to being seen by health care provider; R47.81 Slurred speech; I10 Essential (primary) hypertension; R94.31 Abnormal electrocardiogram [ECG] [EKG]
CPT/HCPCS: 70450; 80053; 85025; 85610; 85730; 93005

== ENCOUNTER → 2018-01-26 | Outpatient (CLI) | payer MEDICARE, BC ==
[2018-01-26 15:17] LABS: BICARBONATE 33.2 MEQ/L (21.0-32.0); CALCIUM 9.2 MG/DL (8.5-10.1); CREATININE 1.13 MG/DL (0.50-1.00)
== END ==
LOC: CLAB 14:26
PROVIDERS: ATTEND Family Medicine
DX: I10 Essential (primary) hypertension (principal)
CPT/HCPCS: 36415; 80048

== ENCOUNTER → 2018-02-17 | Outpatient (CLI) | payer MEDICARE, BC ==
[2018-02-17 13:44] LABS: BICARBONATE 30.8 MEQ/L (21.0-32.0); CALCIUM 9.4 MG/DL (8.5-10.1); CREATININE 1.22 MG/DL (0.50-1.00)
== END ==
LOC: CLAB 12:51
PROVIDERS: ATTEND Family Medicine
DX: E87.6 Hypokalemia (principal)
CPT/HCPCS: 36415; 80048